=== PATIENT | female | born 2005 | race Caucasian/White ===

== ENCOUNTER → 2024-06-17 | Outpatient (CLI) | payer OTHER ==
[2024-06-18 13:07] LABS: ANTICARDIOLIPIN AB, IGG, QN <9 GPL U/mL (0-14); ANTICARDIOLIPIN AB, IGM, QN 10 MPL U/mL (0-12); CARDIOLIPIN AB IGA <9 APL U/mL (0-11)
[2024-06-18 16:07] LABS: ANTI-THROMBIN III ACTIVITY 116 % (75-135); PROTEIN S, FREE 104 % (61-136); PROTEIN S, TOTAL 87 % (60-150)
[2024-06-19 00:06] LABS: LUPUS DRVVT 41.9 sec (0.0-47.0); LUPUS REFLEX INTERPRETATION Comment: (.); PTT-LA 37.2 sec (0.0-43.5)
== END | disposition home or self-care (01) ==
LOC: LAB 14:38
PROVIDERS: ATTEND Nurse Practitioner Women's Health
DX: Z30.09 Encounter for other general counseling and advice on contraception (principal); Z83.2 Family history of diseases of the blood and blood-forming organs and certain disorders involving the immune mechanism